=== PATIENT | male | born 1950 | race Caucasian/White ===

== ENCOUNTER 2017-11-26 19:58 | Emergency (ER) | payer BC ==
[2017-11-26] MEDS ORDERED: DEXAMETHASONE 10 MG/ML VIAL PO STA (21:09)
--- NOTE | 2017-11-26 22:58 | ED Physician Documentation ---
History of Present Illness - Stated complaint Stated Complaint: THROAT SWELLING SHUT - Chief complaint Chief Complaint: Resp - History obtained from History obtained from: Patient, Family - History of Present Illness Timing: Today - Additonal information Additional information: 66-year-old male with a history of acquired angioedema has developed a swelling in his tongue on the left side but it always back to his throat and it makes him feel like he is choking. He usually has a lesser swelling involving his face and he is usually able to control this with then a drill. He did take the Benadryl this evening he is continued to have a sensation that he is going to choke. He has been into see the insect control inspector and he has been diagnosed with idiopathic angioedema.He has not been ill recently he has not eaten any new or different foods and he is uncertain about any type of trigger for this episode. Review of Systems Constitutional: denies: Fever, Chills Eyes: denies: Decreased vision Ears: denies: Ear pain Nose: denies: Rhinorrhea / runny nose, Congestion Throat: reports: Other (swelling of tongue and throat on the left). denies: Sore throat Cardiac: denies: Chest pain / pressure Respiratory: denies: Dyspnea, Cough GI: denies: Abdominal Pain, Nausea, Vomiting : denies: Dysuria, Frequency PD PAST MEDICAL HISTORY - Past Medical History Past Medical History: Yes Musculoskeletal: Osteoarthritis Other Past Medical History: angioedema - Past Surgical History General: Bowel surgery Ortho: Other - Present Medications Home Medications: Ambulatory Orders Medication Instructions Recorded Confirmed Sildenafil Citrate [Viagra] 25 mg PO 11/26/17 Vitamin D3/Folic Acid [Cifrazol 1 each PO 11/26/17 3,775 Unit-1 mg Cap] - Allergies Allergies/Adverse Reactions: Allergies Allergy/AdvReac Type Severity Reaction Status Date / Time No Known Drug Allergies Allergy Verified 11/26/17 20:10 - Social History Does the pt smoke?: No Smoking Status: Never smoker Does the pt drink ETOH?: Yes ETOH Use: Wine Does the pt have substance abuse?: No PD ED PE NORMAL - Vitals Vital signs reviewed: Yes (tachy and hypertensive ) - General General: Alert and oriented X 3, No acute distress, Well developed/nourished - HEENT HEENT: Atraumatic, PERRL, EOMI, Ears normal, Other (There is marked swelling of the left tongue phonation is normal ) - Neck Neck: Supple, no meningeal sign, No bony TTP - Cardiac Cardiac: RRR, No murmur - Respiratory Respiratory: No respiratory distress, Clear bilaterally - Abdomen Abdomen: Soft, Non tender - Back Back: No CVA TTP, No spinal TTP - Derm Derm: Normal color, Warm and dry, No rash - Extremities Extremities: No deformity, No edema - Neuro Neuro: Alert and oriented X 3, No motor deficit, No sensory deficit, Normal speech Eye Opening: Spontaneous Motor: Obeys Commands Verbal: Oriented GCS Score: 15 - Psych Psych: Normal mood, Normal affect Results - Vitals Vitals: Vital Signs - 24 hr 11/26/17 11/26/17 11/26/17 20:07 22:50 23:07 Temperature 36.8 C Heart Rate 101 H 96 87 Respiratory 18 18 16 Rate Blood Pressure 128/93 H 113/83 H 117/80 O2 Saturation 99 98 98 Oxygen O2 Source Room air PD MEDICAL DECISION MAKING - ED course Complexity details: re-evaluated patient, considered differential, d/w patient, d/w family ED course: 66-year-old male with a history of acquired idiopathic angioedema has developed another episode of angioedema. He has angioedema of the tongue today and he is administered dexamethasone 10 mg orally with improvement of his symptoms over approximately 1 hour and 10 minutes. He feels well enough to go home. He has had a number of attacks 2-3 times per year since she has developed this about 5 years ago. He has had complete workup. I have suggested that he may want to talk to his primary care doctor about having some dexamethasone at home for his use during these episodes. Departure - Departure Disposition: 01 Home, Self Care Clinical Impression: Idiopathic angioedema Qualifiers: Encounter type: initial encounter Qualified Code(s): T78.3XXA - Angioneurotic edema, initial encounter Condition: Stable Instructions: ED Angioedema Follow-Up: Aashish Morrison MD [Primary Care Provider] - Comments: Talk to your doctor about keeping some dexamethasone at your home for episodes similar to this. Discharge Date/Time: 11/26/17 23:08
[2017-11-26 23:08] VITALS: BP 117/80
== END 2017-11-26 23:08 | disposition home or self-care (01) ==
LOC: ED 19:58
DX: T78.3XXA Angioneurotic edema, initial encounter (principal)
CPT/HCPCS: 99283